=== PATIENT | male | born 1945 | race Caucasian/White ===

== ENCOUNTER 2018-01-07 13:46 | Outpatient (CLI) | payer MEDICARE ==
--- NOTE | 2018-01-07 15:53 | RAD ---
THREE VIEWS OF THE THORACIC SPINE: COMPARISON: 01/03/17. HISTORY: Back surgery 3 years ago with back pain. FINDINGS: Three views of the thoracic spine show normal height and alignment of the vertebral bodies and interv ertebral disks without fracture or subluxation. No significant degenerative changes are seen. The l ower thoracic spine is difficult to visualize. IMPRESSION: No thoracic spine abnormality visualized. The fracture at the thoracolumbar junction cannot be visua lized on this exam that was previously seen. POS: AB
--- NOTE | 2018-01-07 15:54 | RAD ---
TWO VIEWS LUMBAR SPINE: Comparison: 01-03-17 History: L1 fracture. FINDINGS: Two views lumbosacral spine shows stable wedge compression deformity of L1 with approximately 50-75% anterior height loss. The vertebral bodies demonstrate normal alignment without subluxation. There ar e moderate to severe degenerative changes in the lower lumbosacral spine, greatest at L3-4. IMPRESSION: 1. Stable wedge compression fracture of L1. 2. Stable moderate to severe degenerative changes of the lumbar spine. POS: AB
== END 2018-01-07 13:47 | disposition home or self-care (01) ==
LOC: TBSIIMAG 13:46
PROVIDERS: ATTEND Surgery
DX: M54.5 Low back pain (principal); M54.6 Pain in thoracic spine; M47.896 Other spondylosis, lumbar region; S32.010A Wedge compression fracture of first lumbar vertebra, initial encounter for closed fracture
CPT/HCPCS: 72070; 72100